=== PATIENT | female | born 1995 | race Caucasian/White ===

== ENCOUNTER 2025-04-17 14:56 | Emergency (ER) | payer BC, OTHER ==
[~2025-04-17] VITALS: Ht 165.1 cm; Wt 96.2 kg
[2025-04-17 14:56] VITALS: BP 135/99; PULSE 106; RESP 18; TEMP 99; O2SAT 93
[2025-04-17 15:37] LABS: BASOPHIL # 0.0 10^3/uL (0.0-0.1); BASOPHIL % 0.3 % (0.1-1.2); EOSINOPHIL # 0.1 10^3/uL (0.0-0.2); EOSINOPHIL % 1.3 % (0.0-5.0); HEMATOCRIT(ML) 39.0 % (36.0-46.0); IG % 0.10 % (0.00-0.50); LYMPHOCYTES # 1.65 10^3/uL1 (1.0-4.8); LYMPHOCYTES % 19.0 % (24.0-44.0); MEAN CORP HGB 28.6 pg (26-34); MEAN CORP HGB CONCENTRATION 33.3 g/dL (33-36.5); MEAN CORP VOLUME 85.9 fL (78-100); MONOCYTES # 0.6 10^3/uL (0.3-0.8); MONOCYTES % 6.3 % (5.0-12.0); NEUTROPHIL # 6.3 10^3/uL (1.8-7.7); NEUTROPHILS % 73.0 % (41.0-85.0); RED BLOOD CELL 4.54 10^6/uL (4.00-5.20); RED CELL DISTRIBUTION WIDTH 12.1 % (11.5-14.5); WHITE BLOOD CELL 8.7 10^3/uL (4.5-11.0)
[2025-04-17 15:57] LABS: ALANINE AMINOTRANSFERASE(ML) 22.0 U/L (12-78); ALBUMIN(ML) 3.7 g/dL (3.4-5.0); CREATININE SERUM 1.14 mg/dL (0.59-1.40); EST GFR, NON-AA 55.6 (>/=60); TROPONIN I HIGH SENSITIVITY 5.0 ng/L (0-50)
[2025-04-17 16:23] VITALS: BP 139/56; PULSE 99; RESP 18; O2SAT 92
== END 2025-04-17 16:23 | disposition left against medical advice (07) ==
LOC: ER 14:56
DX: J84.81 Lymphangioleiomyomatosis (principal); J93.9 Pneumothorax, unspecified; Z88.6 Allergy status to analgesic agent
CPT/HCPCS: 36415; 71046; 80053; 81025; 84484; 85025; 85379; 93005; 99284